=== PATIENT | male | born 1990 | race Caucasian/White ===

== ENCOUNTER 2024-03-22 08:07 | Emergency (ER) | payer OTHER, SELFPAY ==
[2024-03-22 08:08] VITALS: BP 164/112; PULSE 95; RESP 20; TEMP 36.1; O2SAT 100; BMI 29.3
--- NOTE | 2024-03-22 08:30 | EDS_ITS ---
HPI HPI - Fall History of Present Illness Chief Complaint: Fall Informant: patient Narrative Narrative: 33-year-old male slipped on ice last night, unable to keep himself from falling, landing mostly on his left knee. Denies any other pain or injury. This morning it is still sore and he has been limping. He is able to bear weight though. Denies any other major injury. No numbness or weakness. PFSH PFSH Medical History no medical history no medical history Home Medications ?Medication ?Instructions ?Recorded ?Last Taken ?Type cephalexin 500 mg capsule 500 mg PO Q6 ##20 10/11/15 U nknown Rx oxycodone-acetaminophen 5 mg-325 1 - 2 tab PO Q4H PRN PRN Pain #15 10/11/15 Unknown Rx mg tablet tabs Allergy/AdvReac Type Severity Reaction Status Date / Time No Known Allergies Allergy Verified 10/11/15 17:12 Social History Smoking Status: Never smoker ROS ROS ED Constitutional Constitutional ED: Denies chills or fever(s) Musculoskeletal Musculoskeletal: Reports extremity pain; Denies neck pain Integumentary Reports Abrasions; Denies rash or wounds Neurologic Neurologic: Denies paresthesias or weakness EXAM Physical Exam Const Vital Signs: 03/22/24 08:08 03/22/24 08:11 Temperature 97.0 F L Temperature Source Temporal Pulse Rate 95 Respiratory Rate 20 H Respiratory Effort Normal Respiratory Depth Normal Respiratory Pattern Normal Blood Pressure 164/112 H Blood Pressure Mean 129 Pulse Ox 100 Oxygen Delivery Method Room Air Room Air Positive well nourished and well developed General Appearance ED: well developed and NAD Neck full ROM and supple Back/Spine normal ROM and normal to inspection Extremity Extremity Narrative: Abrasions and tenderness anterolateral aspect of the left knee, at the joint line and a little distal. The tibial tuberosity is nontender. The patella is nontender. There is no effusion. Fibular head is nontender. All ligaments are stable with short endpoints and he denies any significant discomfort with stressing them. This includes anterior and posterior drawer signs which are negative. Neuro oriented x3, no focal motor deficits and no sensory deficits noted Sensorium / Orientation: alert Psych mental status grossly normal and thought process normal Skin no wounds Rashes: no rashes MDM MDM MDM Narrative Medical decision making narrative: 4 view x-ray series of the left knee were obtained and on my interpretation they are normal. Radiology read similarly. Patient reassured, likely contusion, that involves the bone he could last longer, but this should get better on its own with time. Supportive care advised he was given ibuprofen and an Eleno wrap and instructions. Radiography Diagnostic Testing: Clinical Impression(s) from Imaging Studies Knee X-Ray 03/22/24 08:35 IMPRESSION: Unremarkable examination. Reading Location: [facility]- Discharge Plan Triage Chief Complaint: Fall ED Provider: Vitor Lutz Dx/Rx/DC Orders Clinical Impression: Contusion of left knee, Fall from slipping on ice Instructions: Bone Contusion, ED Contusion, Lower Extremity Prescriptions: No Action cephalexin 500 MG capsule 500 mg PO Q6 Qty: 20 0RF oxycodone-acetaminophen 1 TABLET tablet 1 - 2 tab PO Q4H PRN PRN (Reason: Pain) Qty: 15 0RF Primary Care Provider: Care Physician,No Primary Referrals: doctor, your [Other] - 10-14 Days if not better Print Language: Stateless Disposition Disposition: Home, Self Care
--- NOTE | 2024-03-22 08:35 | RAD_ITS ---
EXAM: KNEE 4 OR MORE VIEWS CLINICAL HISTORY: Knee injury due to a fall. COMPARISON: None. TECHNIQUE: Four views were obtained. FINDINGS: There is good alignment. No bony abnormality is seen. No soft tissue abnormality. RAD/Knee 4 or More Views IMPRESSION: Unremarkable examination. Reading Location: [place] [id number]
[2024-03-22] MEDS: Ibuprofen 600 MG Tablet PO (09:17)
[2024-03-22 09:18] VITALS: BP 134/78; PULSE 64; RESP 18; TEMP 37.2; O2SAT 100
== END 2024-03-22 09:19 | disposition home or self-care (01) ==
PROVIDERS: Emergency Provider Emergency Medicine; Visit Provider Emergency Medicine
DX: S80.02XA Contusion of left knee, initial encounter (principal); W00.0XXA Fall on same level due to ice and snow, initial encounter
CPT/HCPCS: 73564; 99282

== ENCOUNTER → 2024-07-13 | Outpatient (CLI) | payer OTHER, SELFPAY ==
[2024-07-13 12:20] LABS: Absolute Lymphocyte Count 1.13 X10^3/uL (0.83-4.51); Absolute Neutrophil Count 2.7 X10^3/uL (2.0-7.7); Basophil# 0.04 X10^3/uL; Basophil% 0.9 % (0-1); Eosinophil# 0.25 X10^3/uL; Eosinophils% 5.5 % (0-5); Hematocrit 44.5 % (40-54); Hemoglobin 15.8 g/dL (13.0-16.5); Lymphocyte # 1.13 X10^3/ul (0.83-4.51); Lymphocyte % 24.8 % (19-41); Mean Corp Hgb Conc 35.5 g/dL (32-36); Mean Corpuscular Hgb 32.1 pg (27.0-32.0); Mean Corpuscular Volume 90.4 fL (80-94); Mean Platelet Vol. 9.3 fl (6.2-12.0); Monocyte# 0.45 X10^3/uL; Monocyte% 9.9 % (0-10); NRBC Flagged by Analyzer 0 % (0-5); Neutrophil # 2.65 X10^3/uL (2.7-7.7); Neutrophil % 58.2 % (47-70); Platelet Count 222 K/mm3 (150-450); RBC Distribution Width CV 12.4 % (11.6-14.6); RBC Distribution Width SD 41.1 fl (35.1-43.9); Red Blood Count 4.92 M/mm3 (4.6-6.2); White Blood Count 4.6 K/mm3 (4.4-11.0)
[2024-07-13 12:45] LABS: ALB/GLOB Ratio 1.6 RATIO (0.9-2.4); AST(SGOT) 118 U/L (<=37); Alanine Aminotransfer ALT/SGPT 184 U/L (<=46); Albumin, Serum 4.6 g/dL (3.5-5.0); Alkaline Phosphatase 68 U/L (40-129); Anion Gap 12 (5-15); BUN 14 mg/dL (4-19); BUN/Creat Ratio 15.7 RATIO (10-20); Calcium,Total 9.9 mg/dL (7.6-11.0); Carbon Dioxide 24.2 mmol/L (21.0-32.0); Chloride 103 mmol/L (98-108); Cholesterol 209 mg/dL (<=200); EST Glomerular Filtration Rate 116 (>60); Globulin 2.8 g/dL (2.2-4.2); Glucose 88 mg/dL (70-99); High Density Lipoprotein 63 mg/dL; Low Density Lipoprotein Calc. 126 mg/dL; Potassium 4.1 mmol/L (3.3-5.1); Protein, Total 7.4 g/dL (5.9-8.4); Sodium Level 140 mmol/L (133-145); Total Bilirubin 0.54 mg/dL (0.00-1.30); Triglycerides 103 mg/dL; Very Low Density Lipoprotein 21 mg/dL (5-40); cholesterol:hdl ratio screen 3.32
== END | disposition home or self-care (01) ==
PROVIDERS: PCP Family Medicine; Referring Provider Family Medicine; Visit Provider Family Medicine
DX: R03.0 Elevated blood-pressure reading, without diagnosis of hypertension (principal); Z13.1 Encounter for screening for diabetes mellitus; Z13.220 Encounter for screening for lipoid disorders
CPT/HCPCS: 36415; 80053; 80061; 85025